=== PATIENT | female | born 1970 | race Caucasian/White ===

== ENCOUNTER → 2016-09-24 | Outpatient (CLI) | payer OTHER ==
[2014-05-28 16:04] VITALS: BP 101/59
--- NOTE | 2016-09-24 08:54 | KCIC ---
Examination: Ultrasound abdomen complete. HISTORY History of epigastric pain. COMPARISON None available. Findings: The visualized pancreas grossly appears unremarkable. The visualized aorta, IVC appear patent. The right lobe of the liver measures 14.4 centimeters. The common bile duct measures 2.5 millimeters transverse dimension. There is mild increased echogenicity noted throughout the liver. No evidence of gallstones identified. The gallbladder wall thickness measures 2 millimeters. The right kidney measures 10.5 x 5.1 x 5.1 centimeters. The left kidney measures 10.7 x 4.6 x 4.6 centimeters. IMPRESSION 1. Increased echogenicity noted throughout the liver likely hepatic steatosis. 2. No evidence of gallstones. Electronically signed by: David Stout (Sep 24, 2016 08:52:09)
== END | disposition home or self-care (01) ==
LOC: KCIC US 07:52
PROVIDERS: ATTEND Nurse Practitioner Family
DX: R10.13 Epigastric pain (principal); R10.12 Left upper quadrant pain
CPT/HCPCS: 76700

== ENCOUNTER → 2017-03-09 | Outpatient (CLI) | payer OTHER ==
[2014-05-28 16:04] VITALS: BP 101/59
--- NOTE | 2017-03-09 15:43 | KCIC ---
THORACIC SPINE 3V History: Severe right upper back pain for one week Comparison: None. Findings: 3 views of the thoracic spine are submitted. Thoracic vertebral body stature and AP alignment are maintained. No acute osseous abnormality is identified. Impression: 1. No acute osseous abnormality is identified by radiographs. Electronically signed by: Matthew Sanderson MD (03/09/2017 3:40 PM) [id number]
--- NOTE | 2017-03-09 15:50 | KCIC ---
RIBS RIGHT AND PA CHEST History: Severe right side posterior pain for one week Comparison: July 16, 2014 chest radiograph Findings: Single view of the chest and 2 additional views right ribs are submitted. Cardiac silhouette is considered within normal limits. There is no dependent pleural fluid, pneumothorax, lobar infiltrate. No displaced right rib fracture is identified. Impression: 1. No acute abnormality is identified by radiographs. Electronically signed by: Matthew Sanderson MD (03/09/2017 3:46 PM) [email or web address]
== END | disposition home or self-care (01) ==
LOC: KCIC 14:36
PROVIDERS: ATTEND Nurse Practitioner Family
DX: M54.6 Pain in thoracic spine (principal); R07.81 Pleurodynia
CPT/HCPCS: 71101; 72072

== ENCOUNTER → 2017-09-06 | Outpatient (CLI) | payer OTHER | END | disposition home or self-care (01) | LOC: KCIC US 08:16 | DX: K76.0 Fatty (change of) liver, not elsewhere classified (principal) | CPT/HCPCS: 76700 ==

== ENCOUNTER → 2018-03-15 | Outpatient (CLI) | payer OTHER ==
[2014-05-28 16:04] VITALS: BP 101/59
--- NOTE | 2018-03-15 15:31 | KCIC ---
MR of the left wrist Indication: Left wrist pain. Injury. Pain using thumb. Pain radial side. Comparison: None are available Technique: Standard multiplanar sequences are obtained. FINDINGS: Artifact: No significant image degradation Triangular fibrocartilage: Mild signal at the lamina may be degenerative, questionable significance. No evidence of tear. Distal radioulnar alignment: Intact Extensor carpi ulnaris tendon: Intact, no significant dislocation. Other extensor compartments: Mild fluid surrounding the first extensor compartment at the level of the distal radius and wrist. Mild signal within the extensor pollicis brevis and abductor pollicis longus tendons. Flexor tendons: Intact Median nerve: Unremarkable Scapholunate ligament: No evidence of tear Lunotriquetral ligament: No evidence of a tear. Carpal bone alignment: Within normal limits. Fluid: No significant effusion. Joints: No advanced DJD. Bones: No lesion or acute fracture Soft tissues: Soft tissue edema along the lateral wrist. IMPRESSION: 1. Findings compatible with first extensor compartment (de Quervain's) tenosynovitis. 2. Mild heterogeneity the lamina of the triangular fibrocartilage but no evidence of tear. Electronically signed by: Blane Barnes MD (03/15/2018 3:27 PM) [facility]
== END | disposition home or self-care (01) ==
LOC: KCIC MRI 13:10
PROVIDERS: ATTEND Family Medicine
DX: M65.88 Other synovitis and tenosynovitis, other site (principal); R60.0 Localized edema
CPT/HCPCS: 73221